=== PATIENT | female | born 1980 | race Caucasian/White ===

== ENCOUNTER → 2020-11-12 | Outpatient (CLI) | payer OTHER ==
[~2020-11-12] VITALS: Ht 170.2 cm; Wt 84.8 kg
== END ==
LOC: OPSV 11-11 08:00
DX: K51.90 Ulcerative colitis, unspecified, without complications (principal)
CPT/HCPCS: 96365; J3380; J7050

== ENCOUNTER → 2020-11-26 | Outpatient (CLI) | payer OTHER ==
[~2020-11-26] VITALS: Ht 175.3 cm; Wt 84.8 kg
== END ==
LOC: OPSV 08:00
DX: K51.90 Ulcerative colitis, unspecified, without complications (principal)
CPT/HCPCS: 96365; J3380; J7050

== ENCOUNTER → 2020-12-24 | Outpatient (CLI) | payer OTHER ==
[~2020-12-24] VITALS: Ht 175.3 cm; Wt 84.8 kg
== END ==
LOC: OPSV 08:00
DX: K51.90 Ulcerative colitis, unspecified, without complications (principal)
CPT/HCPCS: 96365; J3380; J7050

== ENCOUNTER → 2021-02-18 | Outpatient (CLI) | payer OTHER ==
[~2021-02-18] VITALS: Ht 175.3 cm; Wt 84.8 kg
== END ==
LOC: OPSV 07:45
DX: K51.90 Ulcerative colitis, unspecified, without complications (principal)
CPT/HCPCS: 96365; J3380; J7050

== ENCOUNTER → 2021-04-15 | Outpatient (CLI) | payer OTHER ==
[~2021-04-15] VITALS: Ht 175.3 cm; Wt 84.8 kg
== END ==
LOC: OPSV 08:00
DX: K51.90 Ulcerative colitis, unspecified, without complications (principal)
CPT/HCPCS: 96365; J3380; J7050

== ENCOUNTER 2021-06-30 09:51 | Observation (INO) | payer OTHER ==
[~2021-06-30] VITALS: Ht 175.3 cm; Wt 77.1 kg
[2021-06-30 11:04] LABS: HEMOGLOBIN 13.9 gm/dl (12.3-15.3); RED BLOOD COUNT 4.68 M/UL (4.00-5.10); WHITE BLOOD COUNT 9.7 K/UL (4.5-11.0)
[2021-06-30 11:28] LABS: BUN/CREATININE RATIO 6 (0-10)
[2021-06-30] MEDS ORDERED: LISINOPRIL10 MG PO (13:58)
[2021-06-30] MEDS ORDERED: OTEZLA30 MG PO (13:58)
[2021-06-30] MEDS ORDERED: LEXAPRO20 MG PO (13:58)
[2021-06-30] MEDS ORDERED: ALPRAZOLAM0.5 MG PO (13:58)
[2021-07-01] MEDS ORDERED: PERCOCET 5/325 T1 EA PO (08:45)
== END 2021-07-01 11:42 | disposition home or self-care (01) ==
LOC: ER1 09:51 → CDU 13:50 → ER1 13:50 → MED SURG 4 19:25 → CDU 19:25 → MED SURG 4 19:25
PROVIDERS: Emergency Medicine; ADMIT Surgery
DX: S22.20XA Unspecified fracture of sternum, initial encounter for closed fracture (principal); S22.42XA Multiple fractures of ribs, left side, initial encounter for closed fracture; K51.90 Ulcerative colitis, unspecified, without complications; V89.2XXA Person injured in unspecified motor-vehicle accident, traffic, initial encounter; J32.0 Chronic maxillary sinusitis; R94.31 Abnormal electrocardiogram [ECG] [EKG]; I10 Essential (primary) hypertension
CPT/HCPCS: 70450; 71260; 72125; 80053; 81001; 82550; 82553; 83874; 84484; 84703; 85025; 87086; 93005; 96374; 96375; 99285; G0378; J2270; J2405; J7030; Q9967; U0002

== ENCOUNTER → 2021-07-01 | Outpatient (CLI) | payer OTHER ==
[~2021-07-01] VITALS: Ht 175.3 cm; Wt 84.8 kg
[~2021-07-01] MED LIST: ALPRAZOLAM0.5 MG PO; LEXAPRO20 MG PO; LISINOPRIL10 MG PO; OTEZLA30 MG PO; PERCOCET 5/325 T1 EA PO
== END ==
LOC: OPSV 11:35
DX: K51.00 Ulcerative (chronic) pancolitis without complications (principal)
CPT/HCPCS: 96365; J3380; J7050

== ENCOUNTER → 2021-08-27 | Outpatient (CLI) | payer BC ==
[~2021-08-27] VITALS: Ht 175.3 cm; Wt 84.8 kg
== END ==
LOC: OPSV 08:00
DX: K51.90 Ulcerative colitis, unspecified, without complications (principal)
CPT/HCPCS: 96365; J3380; J7050